=== PATIENT | female | born 1955 | race Caucasian/White ===

== ENCOUNTER 2022-09-25 11:40 | Day surgery (SDC) | payer OTHER, SELFPAY ==
[2022-09-16 12:43] VITALS: BMI 26.1
[2022-09-25] VITALS (12 sets, daily range): BP systolic 120–146; BP diastolic 61–76; PULSE 68–82; RESP 12–18; TEMP 36.2–36.9; O2SAT 96–100; BMI 25.8
--- NOTE | 2022-09-25 07:19 | DI.RAD.S_ITS ---
PROCEDURE: XR HIP W PEL IF DONE RT 2V INDICATIONS: YASMEEN TECHNIQUE: AP pelvis with lateral view(s) of the right hip(s). COMPARISON: [facility], CR, XR PELVIS WITH LATERAL HIP RIGHT, 09/18/2022, 11:46. [facility], CR, XR HIP W PEL IF DONE RT 2V, 09/25/2022, 16:34. FINDINGS: Right hip arthroplasty is present. Hardware is intact without evidence of hardware fracture. There is good anatomic alignment. Arthritic changes are noted within the left hip. IMPRESSION: Right hip arthroplasty. Dictated by: Rosangela Buckley M.D. on 09/25/2022 at 19:12 Approved by: Rosangela Buckley M.D. on 09/25/2022 at 19:13
[2022-09-25] MEDS: CELECOXIB 200 MG CAPSULE PO (12:16)
[2022-09-25] MEDS: ACETAMINOPHEN 325 MG TABLET 975 MG PO (12:16)
[2022-09-25] MEDS: PREGABALIN 75 MG CAPSULE PO (12:17)
[2022-09-25] MEDS: LACTATED RINGERS 1,000 ML 42 ML IV (12:44)
[2022-09-25] MEDS: VANCOMYCIN 1,000 MG/200 ML PIGGYBACK 200 MG IV (13:59)
--- NOTE | 2022-09-25 14:51 | PM.PREOP ---
Pre-operative Note Interval Note History & Physical reviewed/Exam performed by Physician: Yes Changes to H&P: No
--- NOTE | 2022-09-25 14:52 | P.OP_ITS ---
Operative Date/Time/Diagnoses Date of procedure: 09/25/22 Time of procedure: 15:20 Pre-op diagnosis: Severe right hip OA Post-op diagnosis: same Procedure & Clinicians Procedure: Right total hip arthroplasty anterior approach Same procedure as scheduled: Yes Indications: The patient has had progressively worsening right hip pain with radiographic changes consistent with arthritis. Non-operative management has failed and the patient has requested total hip replacement. The risks, benefits and alternatives to surgery were discussed with the patient prior to proceeding. Risks discussed included, but were not limited to, failure to relieve pain, leg length discrepancy, dislocation, stiffness, infection, nerve damage, deep venous thrombosis, pulmonary embolism, stroke, coma, heart attack, permanent paralysis and , as well as the potential need for eventual revision of the prosthetic. Surgeon: Keiko Christianson Floriculture Teacher: Irma See Anesthesia Type: General and Spinal Operative Notes Findings: Severe right hip OA, adequate stability, adequate bone Closure Type: primary Specimen(s): none sent Prosthetic devices, grafts, tissues, transplants, or devices: Christianson and nephew R3 size 52, neutral poly liner,one 6.5 mm screw, size 0 collared polar stem, size 36 by -3 Oxinium Estimated Blood Loss (mL): 250 Blood products transfused: none Procedure in detail: The patient was brought to the operating room. Patient was carefully positioned in the supine position. Time-out was performed and antibiotics were given. Anesthesia was induced. She was positioned in the on the table in order to allow hyperextension of the hip. The right lower extremity was prepped and draped in a standard sterile fashion. An anterior right hip incision was made 1 fingerbreadth lateral to the anterior superior iliac spine and extended distally towards the greater trochanter. Dissection was carried out through skin and subcutaneous tissues. Superficial hemostasis was achieved. The fascia over the tensor fascia lorena was defined and incised with a knife. Two Allis clamps were used to grasp the fascia. Tensor fascia lorena was retracted laterally. A gelpi retractor was placed. Dissection was carried out down along the neck. The circumflex vessels were carefully identified and cauterized with the Aqua Mantis. A PA was used throughout the procedure and was essential for intraoperative positioning, retraction and assisting with hemostasis. There was good visualization of the femoral neck. A Cobra was placed superior to the neck and the gluteus fibers were carefully stripped from that superior aspect of the capsule. A 2nd retractor was placed along the inferior aspect of the neck. The rectus insertion along the capsule was partially released. A 3rd retractor that was then gently placed over the rim of the acetabulum under the rectus. Capsule was carefully incised and released from the intertrochanteric line circumferentially superior to the mid sagittal line and inferiorly to the mid sagittal line until the lesser trochanter was palpable. A tag stitch was placed both in the superior and inferior limb of the capsular insertion. Along the acetabulum capsule was also released up to the mid sagittal 12:00 position. A portion of the labrum was resected. A saw was used to perform an osteotomy at the level of the intertrochanteric line and the junction of the superior femoral neck leaving approximately 1 finger breath of residual inferior neck above the lesser trochanter. A 2nd cut was made along the femoral neck at the base of the head and a napkin ring of neck was removed. Corkscrew was placed in the femoral head and the head was removed without difficulty. Retractors were then repositioned around the acetabulum. Residual labrum was resected and additional osteophytes were removed. A reamer that was 4 mm below the templated size was placed by hand in the acetabulum and it was reamed to centralize the acetabulum. It was then reamed up to 2 under the templated size and fluoroscopy was brought in to confirm the position of the reaming and depth of reaming. I reamed 1 under the anticipated size. A trial cup was placed and noted that it was appropriately sized and fluoroscopy confirmed position and depth. The component was open and inserted without difficulty fluoroscopic imaging was used to confirm that the cup had been adequately seated and was well positioned. It was further stabilized with a single screw. Neutral poly liner was placed. The cup was tested and noted to be stable. Attention was then directed to the femur. The femur was gently hyperextended additional capsular release was performed as needed in order to allow adequate visualization of the proximal femur with elevation of the femur. Patient was placed in a hyperextended slightly adducted position with maximum external rotation. Box osteotome was used to check for any residual neck as well as sclerotic bone along the trochanter. [place] pepper was placed in the femur. Additional broaching was performed. Canal finder was used to determine the alignment of the canal and position. Size 0 broach was placed. The canal was then appropriately broached up to the templated size as long as there was adequate stability of the broach and serial advancement of the broach without excessive impingement. Specific attention was directed at avoiding varus attempting to direct the distal aspect of the broach more anteriorly and avoiding excessive anteversion. Trial reduction showed acceptable range of motion, good stability, no posterior impingement, bahai of leg length and appropriate lateral shuck. I also hyperflexed the hip and checked that there was no impingement anteriorly and there was good stability with flexion, adduction and internal rotation. The stem was placed without difficulty. Repeat trial reduction and x-ray showed acceptable overall position, length, and no evidence of the femoral fracture. Final head was placed. Wound was meticulously irrigated with normal saline. The hip was reduced and additional Exparel and Marcaine were injected. The capsule was closed with interrupted nonabsorbable sutures. The fascia of the tensor was closed with interrupted and running Vicryl. No drain was placed. Any tensor fascia lorena muscle that appeared to be contused or injured which was a minimal amount was carefully resected. Capsule around the tensor was injected with Exparel and Marcaine. The skin was closed with barbed stitches for the subcutaneous tissue and skin. We also used surgical glue. The wound was dressed sterilely. Brief Betadine soak was also used and was meticulously irrigated with normal saline. Patient was transferred to recovery room in satisfactory condition. Complications: none Post-operative Condition: stable Disposition: Acute Care Plan for aftercare: The patient will be maintained on a standard total hip replacement protocol with weight bearing as tolerated and anterior hip precautions. The patient will receive Aspirin and sequential compression devices for DVT prophylaxis. The pa tient will be discharged home when safe for the home environment.
[2022-09-25] MEDS: CEFAZOLIN 2 GM/100 ML PREMIX 100 ML IV ×2 (15:10→22:56)
--- NOTE | 2022-09-25 16:13 | SUR.OPER ---
Supine on padded [place] table with bilateral legs secured in padded positioning boots and suspended in positioning spars, operative leg in traction per surgeon. Head on one pillow. Arm on non-operative side secured on padded armboard <90 degrees abduction. Arm on operative side padded and resting across chest then secured with tape over sheet. Padded perineal post in place per surgeon.
[2022-09-25] MEDS: BUPIVACAINE LIPOSOME 266 MG/20 ML VIAL INJ (16:21)
[2022-09-25] MEDS: BUPIVACAINE 0.25% (PF) 60 ML, EPINEPHrine 0.3 MG INJ (16:23)
--- NOTE | 2022-09-25 17:22 | DI.RAD.S_ITS ---
PROCEDURE: XR HIP W PEL IF DONE RT 2V INDICATIONS: RIGHT TOTAL HIP REPLACEMENT TECHNIQUE: AP pelvis with lateral view(s) of the right hip(s). COMPARISON: [facility] CYRUS Barreto, XR PELVIS WITH LATERAL HIP RIGHT, 09/18/2022, 11:46. FINDINGS: Intraoperative images demonstrate right hip arthroplasty. Hardware is intact with good anatomic alignment. IMPRESSION: Intraoperative right hip arthroplasty. Dictated by: Rosangela Buckley M.D. on 09/25/2022 at 17:36 Approved by: Rosangela Buckley M.D. on 09/25/2022 at 17:37
--- NOTE | 2022-09-25 18:26 | SUR.PHASEI ---
to floor room 217 with belongings. Denies pain, tolerating PO fluids. report called.
[2022-09-25] MEDS: LACTATED RINGERS 1,000 ML 100 ML IV (19:32)
[2022-09-25] MEDS: ACETAMINOPHEN 325 MG TABLET 650 MG PO (19:35)
[2022-09-25] MEDS: IBUPROFEN 400 MG TABLET PO ×2 (19:35→21:49)
[2022-09-25] MEDS: ASPIRIN EC 81 MG TABLET PO (20:41)
[2022-09-25] MEDS: OXYCODONE IR 5 MG TABLET PO (21:49)
[2022-09-25] MEDS: OXYCODONE IR 10 MG TABLET PO (22:56)
[2022-09-26 01:06] VITALS: BP 130/73; PULSE 83; RESP 18; TEMP 36.4; O2SAT 97
[2022-09-26] MEDS: IBUPROFEN 400 MG TABLET PO ×6 (01:56→23:59)
[2022-09-26] MEDS: OXYCODONE IR 5 MG TABLET PO ×4 (01:56→14:27)
[2022-09-26 05:31] LABS: Hematocrit 36.7 % (36-46); Hemoglobin 12.5 g/dL (12.0-16.0)
[2022-09-26] MEDS: ACETAMINOPHEN 325 MG TABLET 650 MG PO ×3 (06:47→17:48)
[2022-09-26] MEDS: CEFAZOLIN 2 GM/100 ML PREMIX 100 ML IV (06:55)
[2022-09-26 08:00] VITALS: BP 115/59; PULSE 79; RESP 18; TEMP 36.9; O2SAT 99
--- NOTE | 2022-09-26 08:08 | P.DS_ITS ---
History of Present Illness History of Present Illness Date Patient Seen: 09/26/22 Time Patient Seen: 08:08 Chief complaint: Right Total Hip Arthroplasty/Anterior 09/25 Narrative: Operative Date/Time/Diagnoses Date of procedure: 09/25/22 Time of procedure: 15:20 Pre-op diagnosis: Severe right hip OA Post-op diagnosis: same Procedure & Clinicians Procedure: Right total hip arthroplasty anterior approach Same procedure as scheduled: Yes Indications: The patient has had progressively worsening right hip pain with radiographic changes consistent with arthritis. Non-operative management has failed and the patient has requested total hip replacement. The risks, benefits and alternatives to surgery were discussed with the patient prior to proceeding. Risks discussed included, but were not limited to, failure to relieve pain, leg length discrepancy, dislocation, stiffness, infection, nerve damage, deep venous thrombosis, pulmonary embolism, stroke, coma, heart attack, permanent paralysis and , as well as the potential need for eventual revision of the prosthetic. Surgeon: Keiko Christianson Forestry Biology Specialist: Irma See Anesthesia Type: General and Spinal Operative Notes Findings: Severe right hip OA, adequate stability, adequate bone Closure Type: primary Specimen(s): none sent Prosthetic devices, grafts, tissues, transplants, or devices: Christianson and nephew R3 size 52, neutral poly liner,one 6.5 mm screw, size 0 collared polar stem, size 36 by -3 Oxinium Estimated Blood Loss (mL): 250 Blood products transfused: none Discharge Providers Provider Discharge Date: 09/26/22 Primary care physician: Gurvinder Lauren MD Consults: 09/25/22 07:19 Consult to Anesthesiology Routine Comment: Consulting Provider: Anesthesiologist Reason for consultation: Regional block for post operative pain control 09/25/22 18:44 Consult to Discharge Planning Routine Comment: Consult to Occupational Therapy Evaluate & Treat Comment: Physician Instructions: Evaluate and treat Consult to Physical Therapy Evaluate & Treat Comment: Physician Instructions: post op YASMEEN protocol Discharge provider: Irma See PA-C Summary Hospital Course Discharge Diagnosis: Right hip osteoarthritis, s/p right total hip arthroplasty Hospital Course: Ms Smith's hospital course was unremarkable. On the morning of POD# 1, she w as feeling well and wanted to go home. She was eating and voiding without difficulty and her pain was well-controlled with oral medication. She had not yet been evaluated by PT. Exam Vital Signs (past 8 hours): - 09/26/22 01:06 Temperature 97.6 F Pulse Rate 83 Respiratory Rate 18 Blood Pressure 130/73 Pulse Oximetry 97 Oxygen Flow Rate 0 Oxygen Delivery Method Room Air Oxygen Flow Rate 0 Narrative Exam Narrative: 5/5 strength in hip flexors, quadriceps, hamstrings, DF, PF, EHL on right. Sensation to light touch intact throughout RLE. Calf soft, compressible, nontender and without palpable cords or masses. Aquacel dressing CDI. Objective Labs 09/26/22 05:09 Labs: Laboratory Results - last 24 hr 09/26/22 05:09 Hgb 12.5 Hct 36.7 PFSH Medical History (Updated 09/16/22 @ 13:24 by Elizabeth Joel, STEFFANY) Arthritis Elevated blood pressure reading in office with diagnosis of hypertension Elevated cholesterol History of COVID-19 (08/11/22) Osteoarthritis Pneumonia Psoriasis Surgical History (Updated 09/16/22 @ 13:10 by Elizabeth Joel RN) History of bilateral cataract extraction Hx of cone biopsy of cervix Social History household members: spouse Smoking Status: Former smoker alcohol intake: current Discharge Assessment & Plan Assessment and Plan Assessment: Right hip osteoarthritis, s/p right total hip arthroplasty Plan of Treatment: Discharge home. ASA BID x 6 weeks for VTE prophylaxis. Multimodal pain control - pt has rxs at home. Outpt PT, f/u in office in 2 weeks as scheduled. Discharge Plan Discharge Plan Patient Disposition: Home Discharge orders & Medications Discharge Orders: Discharge (Order); Ordered 09/26/22 Ordered By: Irma See Prescriptions: Continued meloxicam 15 mg Tablet 7.5 mg PO DAILY acetaminophen 500 mg Tablet 500 mg PO Q6H PRN (Reason: Pain) Follow up/Referrals: Gurvinder Lauren MD [Primary Care Provider] - Keiko Christianson MD [Physician] - As previously scheduled (Follow up with Irma See PA-C, on 10/10/2022 @ 10:30 am at [facility] in [place].) Diet/Activity/Treatments Diet: Diet as Tolerated Activity: Weightbearing as tolerated to right leg. Anterior hip precautions. Cold/Heat Therapy: Ice to hip as needed for pain. Skin/Wound/Dressing Care Report to your healthcare provider any signs of infection, such as:: chills, fever, night sweats, unusual drainage and unusual redness Dressing: May shower. Leave Aquacel dressing in place until follow up in office. No bathing or otherwise soaking incision. Call the office if the dres sing becomes saturated inside. Visit Report/Discharge Packet Instructions: DI for Hip Replacement Stand Alone Forms: Patient Portal/API, Surgery Discharge Discharge Data Primary Care Provider: Gurvinder Lauren Attending Provider: Keiko Christianson
[2022-09-26] MEDS: ASPIRIN EC 81 MG TABLET PO ×2 (08:27→21:05)
[2022-09-26] MEDS: DOCUSATE 100 MG CAPSULE PO ×2 (08:27→21:05)
[2022-09-26] MEDS: MELOXICAM 7.5 MG TABLET PO (08:27)
--- NOTE | 2022-09-26 09:38 | CM.DANOTE ---
Addendum entered by KALEB Etienne 09/26/22 12:20: ADD: Per PT/OT, pt was able to participate but was limited in her mobility and still needs to do stairs and anticipate pt may not be safe until tomorrow 09/27. Will need to assess for stairs before determining HH vs outpt. SW to continue to follow for afternoon session. BF Original Note: Patient is a 67 yo female who was admitted on 09/25/22 for RTHA. Pt has [facility] for insurance and her PCP is Dr. Gurvinder Lauren. EMR was reviewed. Per Ortho, pt tolerated procedure well and to work with PT/OT today. PT/OT ordered and pending. SW met bedside with pt and explained role and pt confirms she lives at home with spouse in [place] and no other local family and pt is active and independent at baseline with ADLs and does not use DME and drives. Pt has upcoming trips planned and is hopeful for full recovery by that time. Pt denies any hx of HH or SNF and states she has outpt PT already set up in a week but would be open to HH if needed. Pt states she will need to be able to manage 8 stairs but then everything would be on one level or 2 stairs but she would have to use this multiple times a day for the bathroom and aware that the [facility] has loaner DME program and hopeful not to have to use a BSC. Pt states spouse is self employed and can take off as much time as needed to assist and will provide transport. Plan: SW to follow for PT/OT eval and recommendations to confirm safe d/c home with spouse assist and outpt PT vs HH. KALEB Etienne Discharge Planning/Care Management Advanced directive, confirm from FAMILY Start: 09/25/22 21:10 Freq: Q24H Status: Active Protocol: Document 09/25/22 21:10 MS (Rec: 09/25/22 21:10 MS [id number]) Advance Directive, confirm on record Time 21:10 Person contacted Pt Copy received No CM Discharge Assessment Start: 09/26/22 09:34 Freq: Status: Active Protocol: Document 09/26/22 09:34 BF (Rec: 09/26/22 09:37 BF [id number]) Discharge Planning Assessment Assigned Malt House Operator KALEB Lake DPOA/Assigned Designee Name informally spouse Contact Information [phone] Advance Directives? Yes Advance Directives on File No History Provided By Patient,Medical Record Has Patient been admitted in last 30 No days? Prior Living Arrangements House Household Members spouse Type of transporation used prior to Drives own vehicle admit Independent with ADL's Yes Is patient alert and oriented? Yes Caregiver for Another No Comment Aware of [facility] DME program Patient/Family Preference Home with Home Health,OP PT Therapy Barriers to Discharge No Discharge Plan Home Community Services Physical Therapy Transportation Arrangement Spouse plans to provide transport at d/c Additional Comment Pending PT/OT to determine outpt vs HH Whiteboard Updated in Patient Room with Yes name and ext. # of Malt House Operator Review Status In Process Please Provide Date Initial DC 09/26/22 Assessment Was Performed Next Review Type Continued Stay Review Pre-Anesthesia Assessment Start: 09/16/22 12:43 Freq: Status: Active Protocol: Document 09/16/22 12:43 CAB (Rec: 09/16/22 13:46 CAB [id number]) Pre-Anesthesia Assessment Patient Information Reviewed Via Phone Assessment Assessment Completed With Patient Diagnostic Results BMP/CMP,CBC,EKG,Urinalysis Comment Outside labs/EKG scanned Primary Care Provider Gurvinder Lauren Seen Specialist in Last 12 Months Yes Specialist Seen Orthopedist Primary Language Latvian E Commerce Architect Required No Height 172.72 cm Weight 78.018 kg Body Mass Index (BMI) 26.1 Hearing Ability Normal Visual Assist Magnifying Glass Barriers to Learning None Other Aids Yes: mouth guard Hx Anesthesia Reactions No Hx Family Anesthesia Reaction No Hx Malignant Hyperthermia No Hx Blood Transfusions No Anesthesia Review Requested No Ground Transportation Operator No alcohol intake current alcohol intake frequency 0-2 drinks per day Smoking Status Former smoker how long ago did patient quit smoking Quit 25 years ago Substance Use Type does not use Pain Present Pain Reported Musculoskeletal Symptoms Abnormal Gait,Difficulty Walking,Joint Pain History of Falling (Recent or History of No ) Patient is completely paralyzed or No completely immobile Mental Status Oriented to own ability Comment Occasional walking stick with uneven surfaces Is patient on oxygen? No Does patient have SINGH/SOB No Hx Sleep Apnea No Currently Taking a Beta Megha No Can You Climb a Flight of Stairs Without Yes SOB Hx Chest Pain No Hx SOB No Hx Syncope or Dizziness No Anti-Coagulant Therapy No Has a Terrazzo Tile Setter No Cardiac Testing No Hx Pacemaker/ICD No Pacemaker Rep Required? No Cardiac Clearance Received Not Applicable Diet Type At Home Regular Dysphagia No Gastrointestinal Symptoms None Chronic UTI No Urinary Catheter Present No Hx Urinary Self Catheterization No Diabetes No Patient No Lactating No Hx Drug Resistant Organism No Presence of External or Internal Medical No Devices Received a COVID vaccine? Yes Received all doses? Yes Marital Status Lives With spouse Current Living Arrangements House Number of Floors (Floors) 3 or More Floors Support System Spouse Does the Patient Have Assistance After Yes Surgery Patient Discharge Plan Description Return Home Comment Pt advised possible overnight length of stay per surgeon Feels Safe in Current Environment Yes Been Physically Hurt or Threatened By a No Person in Current Environment Do you have thoughts of harming yourself None or others? Are you currently considering suicide? No Do you have a plan to hurt yourself or No Plan others? Do You Have Any Spiritual Beliefs That No May Affect Your HC Choices? Do You Have Any Cultural Practices That No May Affect Your HC Choices? Who Can We Speak to About Patient's Care Family, friends Identifying Code for Release of Patient Declines to issue Information Health Care Proxy/Next of Kin Archie () Health Care Proxy Emergency Contact Name Archie () Emergency Contact Advance Directives? Yes Advance Directives on File No Requested Patient Bring Advanced Yes Directives DOS Power of Cutting And Creasing Press Operator Yes Power of Cutting And Creasing Press Operator Name Archie () Power of Cutting And Creasing Press Operator PAC Instructions Do not shave/clip surgical site,Durable medical equipment ,Medications to take/avoid, Nasal antibiotic,No ETOH/ petroleum product on skin DOS, NPO,Pre-surgical wash,Sensory aids,Sturdy shoes/comfortable clothes,Do not bring valuables and remove jewelry
--- NOTE | 2022-09-26 12:03 | OT.IP.EVAL ---
Current Diagnoses Bilateral primary osteoarthritis of hip (09/25/22) Surgery Performed Operation Date: 09/25/22 13:45 Actual Procedures p Total Hip Arthroplasty/Anterior Approach(Right) - Keiko Christianson MD Past Medical History (Last Updated 09/16/22 @ 13:24 by Elizabeth Joel, RN) Arthritis Elevated blood pressure reading in office with diagnosis of hypertension Elevated cholesterol History of COVID-19 (08/11/22) Osteoarthritis Pneumonia Psoriasis Surgical History (Last Updated 09/16/22 @ 13:10 by Elizabeth Joel RN) History of bilateral cataract extraction Hx of cone biopsy of cervix Occupational Therapy Inpatient Evaluation/Re-Eval M1 PT/OT-IP Prior Functional Status Start: 09/26/22 12:16 Freq: NEEDED Status: Active Protocol: Document 09/26/22 11:25 [facility] (Rec: 09/26/22 12:45 [facility] [id number]) Medical Review Prior Functional Status Communication Independent Mobility and Gait Use of trekking poles on uneven ground, otherwise no device used, Activities of Daily Living and IADL's Pt able to do her ADL's. Social History Household Members spouse Living Arrangements House Number of Stairs To Enter/Railing? Pt has multiple steps in her house, please refer to PT eval for more details. Home Environment Standard Height Toilet,Walk in Shower,Tub/Shower Home Equipment Front Wheel Walker,Straight Cane,Tub Transfer Bench,Long Handled Shoe Horn,Ice Cream Man,Grab Bars Near Toilet Additional Social History Comment Pt has a toilet safety frame. M2 OT-IP Current Condition Start: 09/26/22 12:16 Freq: Status: Active Protocol: Document 09/26/22 11:25 [facility] (Rec: 09/26/22 12:45 [facility] [id number]) Occupational Therapy Current Condition Current Condition Evaluation Date 09/26/22 Treatment Diagnosis S/p R YASMEEN anterior approach Diagnosis Onset Date 09/25/22 Post Operative Precautions Anterior Hip Precautions No Hip Extension,No Hip External Rotation Weight Bearing Status Weight Bearing Status Weight Bear as Tolerated M3 OT- IP Subjective and Pain Start: 09/26/22 12:16 Freq: Status: Active Protocol: Document 09/26/22 11:25 [facility] (Rec: 09/26/22 12:45 [facility] [id number]) OT- Subjective Occupational Therapy Visit Type Type Initial Evaluation Visit Start Time 11:25 Visit Stop Time 12:03 Total Visit Minutes 28 Occupational Therapy Visit Comments Patient Comments Pt agreed to get up to do oral are needs. Patient/Caregiver Goals To go home. OT Pain Assessment Pain When Pain Assessed At Rest Pain Present Pain Present Pain Reported Location Right Hip Intensity 2 Scale Used Numeric (0 - 10) M4 OT- IP ADL's Start: 09/26/22 12:16 Freq: Status: Active Protocol: Document 09/26/22 11:25 [facility] (Rec: 09/26/22 12:45 [facility] [id number]) OT [id number] General Evaluation Self-Feeding Ability Independent OT ADL-Grooming General Evaluation Grooming Ability Independent Comments OT Grooming Comments Pt able to do while standing at the sink with FWW and use of counter to hold to for balance. OT ADL-Oral Care General Eval Oral Care Ability Independent Comments Oral Care Comments Able to do while standing at the sink with FWW. OT ADL-Dressing General Eval Lower Body Dressing Ability Minimal Assistance Comments OT Dressing Comments At this time pt not able to comfortably lean over to to do her socks and pt shown use of sock aid. OT ADL-Toileting Comments OT Toileting Comments Pt just used the toilet with PT prior. Spoke of wearing pads at night and tappering drinking liquids at night. OT ADL-Bathing Comments OT Bathing Comments Pt states has a tub bench from a friend. Suggested would be easier to use the walk in shower with the tub bench and have the HHsp. Currently the HHSP is in the tub/shower bathroom. M5 OT- IP IADL's Start: 09/26/22 12:16 Freq: Status: Active Protocol: Document 09/26/22 11:25 [facility] (Rec: 09/26/22 12:45 [facility] [id number]) OT-Instrumental Activities of Daily Living Deficits IADL Deficits Identified Deficits Home Safety Awareness Awareness of Need for Assistance at Home Good Awareness Home Safety Comments Pt is a bit tearful and will benefit from assist at home. M6 OT- IP Functional Cognition Start: 09/26/22 12:16 Freq: Status: Active Protocol: Document 09/26/22 11:25 [facility] (Rec: 09/26/22 12:45 [facility] [id number]) Cognitive Factors Limiting Selfcare Function Cognitive Ability Level of Alertness Alert Patient Orientation Name,Place,Situation Attention Span Ability Capable of Focused Attention, Capable of Sustained Attention Ability to Follow Commands Able to Follow One Step Commands Cognitive Comments Cognitive Assessment Comments Pt able to follow her hip precautions during mobility and ADl needs. Pt is a bit tearful and needing reassurance that she is doing well so far in therapy. Pt needing reminders that is is okay to put weight on her RLE as pt tend to just lift in up when turning with the FWW. OT- Vision and Hearing OT- Hearing Assessment OT- Hearing Assessment WFL M7 OT- IP Mobility and Balance Start: 09/26/22 12:16 Freq: Status: Active Protocol: Document 09/26/22 11:25 [facility] (Rec: 09/26/22 12:45 [facility] [id number]) OT-Transfer Assessment Sit to and From Stand Sit to and from Stand Contact Guard Assistance Transfers Transfer Ability Standby Assistance,Contact Guard Assistance Technique Transfer Destination Chair Comments Mobility Comments Occasional vc to follow hip precaution when backing up to lead with the LLE. Pt having heavy use of her arms on the FWW. OT- Balance Assessment Sitting Balance and Reactions Static Sitting Balance Ability Normal Dynamic Sitting Balance Ability Good Standing Balance and Reactions Static Standing Balance Ability Fair Dynamic Standing Balance Ability Fair M9 OT- IP Assessment and Plan Start: 09/26/22 12:16 Freq: Status: Active Protocol: Document 09/26/22 11:25 [facility] (Rec: 09/26/22 12:45 [facility] [id number]) OT Summary Assessment and Plan Potential Rehabilitation Potential Good Analytic Complexity at Evaluation Low Summary OT Impairments Pain,Strength,Balance, Functional Mobility,Dressing, Toileting,Bathing,Toilet Transfers,Shower Transfers, Activity Tolerance Progress Towards Goals Progressing Toward Goals,Slow Progress due to Pain,Slow Progress due to Activity Tolerance Assessment Summary Pt low complexity and main barriers are steps, cues for hip precautions, and decreased activity tolerance. Pt has a supportive to be able to help her and will benefit from caregiver training prior to going home. Pt to go home when medically stable with to assist. pending progress, pt may benefit from possible home health initially versus outpt PT. Goals Dressing Goal Independent Toileting Goal Independent Bathing Goal Independent Toilet Transfer Goal Independent Shower Transfer Goal Independent Days to Meet Goals 7 Frequency of Treatment Frequency Of Treatment Once a Day Treatment Plan OT Treatment Plan ADL Training,Functional Mobility,Patient/Family Education,Discharge Planning Discharge Recommendations OT Discharge Recommendations Home with Assistance, Outpatient PT Other Discharge Recommendations Pending progress and stair management needs, possibly may need home health initially. Transportation Needs at Discharge Private Vehicle
--- NOTE | 2022-09-26 12:44 | PT.IIE ---
Current Diagnoses Bilateral primary osteoarthritis of hip (09/25/22) Surgery Performed Operation Date: 09/25/22 13:45 Actual Procedures p Total Hip Arthroplasty/Anterior Approach(Right) - Keiko Christianson MD Surgical History (Last Updated 09/16/22 @ 13:10 by Elizabeth Joel, RN) History of bilateral cataract extraction Hx of cone biopsy of cervix Medical History (Last Updated 09/16/22 @ 13:24 by Elizabeth Joel, RN) Arthritis Elevated blood pressure reading in office with diagnosis of hypertension Elevated cholesterol History of COVID-19 (08/11/22) Osteoarthritis Pneumonia Psoriasis Physical Therapy Inpatient Evaluation/Re-Eval M1 PT/OT-IP Prior Functional Status Start: 09/26/22 08:48 Freq: NEEDED Status: Active Protocol: Document 09/26/22 12:18 [facility] (Rec: 09/26/22 12:44 [facility] [id number]) Medical Review Prior Functional Status Medical History Reviewed Yes Diet/Fluid Consistency Regular Communication Indep Mobility and Gait Indep; use of B trekking poles on uneven ground outside. Activities of Daily Living and IADL's Indep Prior Functional Level (Other details) Able to drive Social History Household Members spouse Living Arrangements House Number of Floors (Floors) 3 or More Floors Number of Stairs To Enter/Railing? Multiple levels throughout the house. No stairs to enter to kitchen level. 4 stairs to a landing plus another 4 stairs up to main bedroom and bathroom. 2 stairs down to second bedroom, with another 2 stairs to the second bathroom . All stairs without rails. There is a shelf on the upper set of 4 stairs to the main bedroom. Home Environment Standard Height Toilet Home Equipment Front Wheel Walker,Straight Cane,Long Handled Shoe Horn, Senior Trial Attorney Additional Social History Comment Has 2 canes, and has arm rests on the toilet. M2 PT-IP Current Condition Start: 09/26/22 08:48 Freq: NEEDED Status: Active Protocol: Document 09/26/22 12:18 [facility] (Rec: 09/26/22 12:44 [facility] [id number]) Physical Therapy Current Condition Current Condition Evaluation Date 09/26/22 Treatment Diagnosis S/p R YASMEEN Onset Date 09/25/22 M3 PT-IP Subjective Start: 09/26/22 08:48 Freq: NEEDED Status: Active Protocol: Document 09/26/22 12:18 [facility] (Rec: 09/26/22 12:44 [facility] [id number]) Subjective Physical Therapy Visit Type Type Initial Evaluation Visit Start Time 10:12 Visit Stop Time 11:12 Total Visit Minutes 60 Physical Therapy Visit Comments Patient Comments Patient alert in bed, agreeable to work with PT. Patient stated that last night she had an accident with the pure wick and the nursing staff changed her bed linens while she was in the bed, having her roll on to each side. When she rolled on to her R side she had pain in the R outer thigh, buttock, and foot. Patient stated she is worried that something happened to her hip joint. Therapy Pain Assessment Pain When Pain Assessed At Rest Pain Present Pain Present Pain Reported Location Right Hip Intensity 1 Scale Used Numeric (0 - 10) Pain Management Techniques Apply Cold,Re-positioning, Timing of Activity with Medications M4 PT-IP Mobility and Gait Start: 09/26/22 08:48 Freq: NEEDED Status: Active Protocol: Document 09/26/22 12:18 [facility] (Rec: 09/26/22 12:44 [facility] [id number]) PT-Bed Mobility Assessment Supine to Sit Supine to Sit Minimal Assistance,Bedrails Scooting Scooting to Edge of Bed Standby Assistance PT-Transfer Assessment Sit to and From Stand Sit to and from Stand Minimal Assistance,Use of Upper Extremities Equipment Transfer Assistive Device Gait Belt,Front Wheeled Walker Transfers Transfer Destination Chair,Toilet Transfer Technique Ambulation Transfer Ability Level of Assist Minimal Assistance,Use of Upper Extremities Comments Mobility Comments Instructed patient in set up positioning and hand placement for sit to/from stand to reduce pain and excessive ROM of R hip. Patient required min A to push to stand from toilet despite using grab bar. Gait Assessment Gait Gait Assistance Required: Contact Guard Assist Distance (Feet) 12 Assistive Devices Assistive Device Gait Belt,Front Wheeled Walker Gait Deviations General Gait Pattern Antalgic,Decreased Feet Clearance,Step-to Gait Factors Limiting Gait Function Factors Limiting Gait Function Decreased Strength,Pain Comments Gait Comments Ambulated with short step length, R leg leading, with decreased R hip and knee flexion contributing to decreased R foot clearance. She had decreased stance time and WB into RLE. Patient cued for hip precautions during turning to reduce ER. PT-Balance Assessment Sitting Balance and Reactions Static Sitting Balance Ability Good Dynamic Sitting Balance Ability Good Standing Balance and Reactions Static Standing Balance Ability Good Dynamic Standing Balance Ability Fair Device Used FWW M5 PT-IP Objective Assessments Start: 09/26/22 08:48 Freq: NEEDED Status: Active Protocol: Document 09/26/22 12:18 [facility] (Rec: 09/26/22 12:44 [facility] [id number]) Orientation Orientation/Cognition Level of Alertness Alert Orientation Name,Age,Birthday,Month,Date, Year,Day of Week,Place, Situation Language Function Ability No Deficits Noted Safety Awareness Understands Safety Issues Memory Description No Deficits Noted Gross Range of Motion Upper Extremity ROM Assessment Within Functional Limits Lower Extremity ROM Assessment Right Impaired Impairments 2/2 hip precautions, pain Strength Upper Extremity Strength Assessment Within Functional Limits Lower Extremity Strength Assessment Right Impaired Comments Strength Comments R hip strength impaired 2/2 surgery. Coordination Assessment Gross Coordination Gross Coordination WNL Sensation Assessment Comments Sensation Comments Patient reported some numbness in the lateral R thigh. M6 PT-IP Treatment Start: 09/26/22 08:48 Freq: NEEDED Status: Active Protocol: Document 09/26/22 12:18 [facility] (Rec: 09/26/22 12:44 [facility] [id number]) Physical Therapy Treatment Exercises Exercises Ankle Pumps,Gluteal Sets,Quad Sets,Heel Slides Education Education Provided Precautions,Weight Bearing Status,Post-Op Packet,Safety Equipment Issued Equipment Type and Company Recommended she consider obtaining a second FWW so that she can move from one level to another in her home without having to take walker up and down stairs each time. Also recommended BSC if she sleeps in the second bedroom to avoid having to go up/down stairs at night. M7 PT-IP Assessment and Plan Start: 09/26/22 08:48 Freq: NEEDED Status: Active Protocol: Document 09/26/22 12:18 [facility] (Rec: 09/26/22 12:44 [facility] [id number]) PT Summary Assessment and Plan Potential Rehabilitation Potential Good Status of Condition at Evaluation Stable Summary Impairments Pain,ROM,Strength,Bed Mobility ,Transfers,Gait,Activity Tolerance Assessment Summary Patient is a 67 year old female POD #1 s/p R YASMEEN. She required min A for bed mobility to move LE's to EOB, min A for transfers due to decreased strength for pushing to stand, and was only able to ambulate very short distance with FWW due to pain and decreased strength in RLE with WB. She demonstrated good understanding of precautions. She required assistance with heel slides, otherwise able to perform HEP without problem. She will benefit from further skilled therapy to increase independence with functional mobility prior to d/c home. Goals Bed Mobility Goal Independent Transfer Goal Independent,Front Wheeled Walker Gait Goal Independent,Front Wheel Walker Gait Distance 100 Other Goals Patient will be able to ascend /descend up to 8 stairs without rail with LRAD and SBA . Patient will demonstrate good understanding of hip precautions without cues. Patient will be indep with YASMEEN HEP. Days to Meet Goals 3 Frequency of Treatment Frequency Of Treatment Twice a Day Treatment Plan Physical Therapy Treatment Plan Bed Mobility Training,Transfer Training,Gait Training, Therapeutic Exercise,Post Op Education,Discharge Planning, Hot or Cold Pack Precautions Anterior Hip Precautions No Hip Extension,No Hip External Rotation Weight Bearing Status Weight Bearing Status Weight Bear as Tolerated Allowed Weight Bearing Amount (enter % WBAT RLE or #) (%) Recommendations To Nursing Amount of Assist Needed 1 Person Assist Discharge Recommendations PT Discharge Recommendations Home with Assistance, Outpatient PT Transportation Needs at Discharge Private Vehicle
--- NOTE | 2022-09-26 17:26 | PT.IPTN ---
Current Diagnoses Bilateral primary osteoarthritis of hip (09/25/22) Surgery Performed Operation Date: 09/25/22 13:45 Actual Procedures p Total Hip Arthroplasty/Anterior Approach(Right) - Keiko Christianson MD Physical Therapy Treatment Note M2 PT-IP Current Condition Start: 09/26/22 08:48 Freq: NEEDED Status: Active Protocol: Document 09/26/22 12:18 [facility] (Rec: 09/26/22 12:44 [facility] [id number]) Physical Therapy Current Condition Current Condition Evaluation Date 09/26/22 Treatment Diagnosis S/p R YASMEEN Onset Date 09/25/22 M3 PT-IP Subjective Start: 09/26/22 08:48 Freq: NEEDED Status: Active Protocol: Document 09/26/22 17:11 [facility] (Rec: 09/26/22 17:25 [facility] [id number]) Subjective Physical Therapy Visit Type Type Treatment Note Visit Start Time 15:21 Visit Stop Time 16:06 Total Visit Minutes 45 Number of AMMUNITION OFFICER Visits 0 Physical Therapy Visit Comments Patient Comments Patient alert in bed, reported she had pain meds prior to treatment and not having any pain at rest though having difficulty performing heel slide in the bed. Patient agreeable to work with PT. She expressed concern about going home where she will have to be able to go up and down stairs throughout the day. Therapy Pain Assessment Pain When Pain Assessed At Rest Pain Present Pain Present Denied Pain M4 PT-IP Mobility and Gait Start: 09/26/22 08:48 Freq: NEEDED Status: Active Protocol: Document 09/26/22 17:11 [facility] (Rec: 09/26/22 17:25 [facility] [id number]) PT-Bed Mobility Assessment Supine to Sit Supine to Sit Standby Assistance,Head of Bed Elevated,Bedrails Scooting Scooting to Edge of Bed Standby Assistance PT-Transfer Assessment Sit to and From Stand Sit to and from Stand Contact Guard Assistance,Use of Upper Extremities Equipment Transfer Assistive Device Gait Belt,Front Wheeled Walker Transfers Transfer Destination Chair,Toilet Transfer Technique Ambulation Transfer Ability Level of Assist Contact Guard Assistance,Use of Upper Extremities Comments Mobility Comments Patient performed bed supine to sit with HOB slightly raised and use of leg material handler 1st shift to assist. She required extra time and had difficulty even with use of leg material handler 1st shift. She required min cues for placing operative leg forward to reduce pain during STS. Gait Assessment Gait Gait Assistance Required: Contact Guard Assist Distance (Feet) 60 Assistive Devices Assistive Device Gait Belt,Front Wheeled Walker Gait Deviations General Gait Pattern Antalgic,Decreased Stride Length,Decreased Feet Clearance,Step-to Gait Factors Limiting Gait Function Factors Limiting Gait Function Decreased Strength,Pain Comments Gait Comments Patient again had difficulty bearing weight through RLE, with c/o ankle instability and pain. She was able to lengthen her step length some with further ambulation still using step-to pattern due to decreased stance time on R. Stair Climbing Assessment Evaluation Level of Assist On Stairs Moderate Assistance Devices Stair Climbing Assistive Devices Straight Cane,Left Railing Technique/Endurance Stair Climbing Direction Ascend and Descend Stair Climbing Technique Step to Step Number of Steps Climbed 3 Stair Climbing Set # Repetitions (reps) 2 Comments Stair Climbing Comments Performed initially with B rails and CGA. Then attempted with SPC and single rail and required mod A including blocking of RLE while descending due to decreased WB tolerance through RLE. PT-Balance Assessment Sitting Balance and Reactions Static Sitting Balance Ability Good Dynamic Sitting Balance Ability Good Standing Balance and Reactions Static Standing Balance Ability Good Dynamic Standing Balance Ability Fair Device Used FWW M5 PT-IP Objective Assessments Start: 09/26/22 08:48 Freq: NEEDED Status: Active Protocol: Document 09/26/22 12:18 [facility] (Rec: 09/26/22 12:44 [facility] [id number]) Orientation Orientation/Cognition Level of Alertness Alert Orientation Name,Age,Birthday,Month,Date, Year,Day of Week,Place, Situation Language Function Ability No Deficits Noted Safety Awareness Understands Safety Issues Memory Description No Deficits Noted Gross Range of Motion Upper Extremity ROM Assessment Within Functional Limits Lower Extremity ROM Assessment Right Impaired Impairments 2/2 hip precautions, pain Strength Upper Extremity Strength Assessment Within Functional Limits Lower Extremity Strength Assessment Right Impaired Comments Strength Comments R hip strength impaired 2/2 surgery. Coordination Assessment Gross Coordination Gross Coordination WNL Sensation Assessment Comments Sensation Comments Patient reported some numbness in the lateral R thigh. M6 PT-IP Treatment Start: 09/26/22 08:48 Freq: NEEDED Status: Active Protocol: Document 09/26/22 17:11 [facility] (Rec: 09/26/22 17:25 [facility] [id number]) Physical Therapy Treatment Education Education Provided Precautions,Weight Bearing Status,Safety M7 PT-IP Assessment and Plan Start: 09/26/22 08:48 Freq: NEEDED Status: Active Protocol: Document 09/26/22 17:11 [facility] (Rec: 09/26/22 17:25 [facility] [id number]) PT Summary Assessment and Plan Summary Impairments Pain,ROM,Strength,Bed Mobility ,Transfers,Gait,Activity Tolerance Progress Towards Goals Slow Progress due to Activity Tolerance Assessment Summary Patient continues to be unsteady with walking due to pain and instability with WB through RLE. She was able to perform bed mobility with decreased assistance using leg material handler 1st shift, and required decreased assistance with transfers this visit. She was able to progress ambulation distance though still demonstrates limited WB tolerance through RLE and uses max UE support on FWW. She required mod A on stairs using single rail and cane, which will be her setup at home. She is not yet safe to d/c home as she will have to go up/down stairs daily. She will benefit from further PT to increase independence with mobility prior to d/c home. She may benefit from HHPT as it will likely be difficult for her to leave her home to attend OP PT initially. Goals Bed Mobility Goal Independent Transfer Goal Independent,Front Wheeled Walker Gait Goal Independent,Front Wheel Walker Gait Distance 100 Other Goals Patient will be able to ascend /descend up to 8 stairs with single rail with LRAD and SBA. Patient will demonstrate good understanding of hip precautions without cues. Patient will be indep with YASMEEN HEP. Days to Meet Goals 3 Frequency of Treatment Frequency Of Treatment Twice a Day Treatment Plan Physical Therapy Treatment Plan Bed Mobility Training,Transfer Training,Gait Training, Therapeutic Exercise,Post Op Education,Discharge Planning, Hot or Cold Pack Other Recommendations and Next Treatment Gait and stair training. Focus Caregiver training with at 10:30. Precautions Anterior Hip Precautions No Hip Extension,No Hip External Rotation Weight Bearing Status Weight Bearing Status Weight Bear as Tolerated Allowed Weight Bearing Amount (enter % WBAT RLE or #) (%) Recommendations To Nursing Amount of Assist Needed 1 Person Assist Discharge Recommendations PT Discharge Recommendations Home with Assistance,Home Health Other Discharge Recommendations HHPT vs OPPT depending on progress. Transportation Needs at Discharge Private Vehicle
[2022-09-26 20:00] VITALS: BP 129/56; PULSE 73; RESP 16; TEMP 36.7; O2SAT 97
[2022-09-27] MEDS: ACETAMINOPHEN 325 MG TABLET 650 MG PO ×2 (00:05→06:02)
[2022-09-27] MEDS: IBUPROFEN 400 MG TABLET PO ×2 (06:02→12:01)
[2022-09-27 08:00] VITALS: BP 134/50; PULSE 77; RESP 18; TEMP 36.4; O2SAT 96
[2022-09-27] MEDS: ASPIRIN EC 81 MG TABLET PO (08:55)
[2022-09-27] MEDS: DOCUSATE 100 MG CAPSULE PO (08:55)
--- NOTE | 2022-09-27 09:22 | PM.PNPO.1 ---
Subjective Subjective Date Patient Seen: 09/27/22 Time Patient Seen: 09:22 Interval history: Pt stayed yesterday due to weakness and slow progress w/ PT. Feeling much better today. Plans for to come in for caregiver training w/ PT this morning, then d/c home. Concerned about tight, warm feeling in thigh. Exam Vital Signs (past 8 hours): Oxygen Delivery Method Room Air Oxygen Flow Rate 0 Narrative Exam Narrative: 5/5 strength in hip flexors, quadriceps, hamstrings, DF, PF, EHL on right. Sensation to light touch intact throughout RLE. Calf soft, compressible, nontender and without palpable cords or masses. Thigh is without erythema or abnormal warmth. Aquacel dressing has scant bloody drainage. Objective Labs 09/26/22 05:09 [facility] Medical History (Updated 09/16/22 @ 13:24 by Elizabeth Joel RN) Arthritis Elevated blood pressure reading in office with diagnosis of hypertension Elevated cholesterol History of COVID-19 (08/11/22) Osteoarthritis Pneumonia Psoriasis Surgical History (Updated 09/27/22 @ 09:25 by Irma See PA-C) History of bilateral cataract extraction Hx of cone biopsy of cervix Social History household members: spouse Smoking Status: Former smoker alcohol intake: current Assessment & Plan Post-op Assessment and plan (1) S/P total hip arthroplasty: Assessment and Plan narrative: Discharge home today after PT. Please see d/c summary for details. Postoperative Procedures: Procedures Operation Date: 09/25/22 13:45 Actual Procedure Side Surgeon p Total Hip Arthroplasty/Anterior Approach Right Keiko Christianson MD Postoperative day: 2
[2022-09-27] MEDS: OXYCODONE IR 5 MG TABLET PO ×2 (09:39→12:50)
--- NOTE | 2022-09-27 10:23 | PT.IPTN ---
Current Diagnoses Bilateral primary osteoarthritis of hip (09/25/22) Presence of unspecified artificial hip joint (09/25/22) Surgery Performed Operation Date: 09/25/22 13:45 Actual Procedures p Total Hip Arthroplasty/Anterior Approach(Right) - Keiko Christianson MD Physical Therapy Treatment Note M2 PT-IP Current Condition Start: 09/26/22 08:48 Freq: NEEDED Status: Active Protocol: Document 09/26/22 12:18 ES (Rec: 09/26/22 12:44 ES [id number]) Physical Therapy Current Condition Current Condition Evaluation Date 09/26/22 Treatment Diagnosis S/p R YASMEEN Onset Date 09/25/22 M3 PT-IP Subjective Start: 09/26/22 08:48 Freq: NEEDED Status: Active Protocol: Document 09/27/22 10:23 AB (Rec: 09/27/22 12:49 AB [id number]) Subjective Physical Therapy Visit Type Type Treatment Note Visit Start Time 10:23 Visit Stop Time 11:35 Total Visit Minutes 72 Number of OIL ANALYST Visits 0 Physical Therapy Visit Comments Patient Comments agreeable to do PT Therapy Pain Assessment Pain When Pain Assessed During Mobility Location Right Hip Scale Used pain scale not stated Description Sharp,With Movement Pain Management Techniques Apply Cold,Distraction, Modification of Treatment,Re- positioning,Timing of Activity with Medications M4 PT-IP Mobility and Gait Start: 09/26/22 08:48 Freq: NEEDED Status: Active Protocol: Document 09/27/22 10:23 AB (Rec: 09/27/22 12:49 AB [id number]) PT-Bed Mobility Assessment Supine to Sit Supine to Sit Standby Assistance Sit to Supine Sit to Supine Standby Assistance PT-Transfer Assessment Sit to and From Stand Sit to and from Stand Contact Guard Assistance,1 Person Assistance,Use of Upper Extremities Equipment Transfer Assistive Device Gait Belt,Front Wheeled Walker Orthotic/Prosthetic Devices or Brace: No Transfers Transfer Destination Bed,Chair Transfer Technique ambulated Transfer Ability Level of Assist Contact Guard Assistance,1 Person Assistance,Use of Upper Extremities Comments Mobility Comments pt sitting on chair. reviewed anterior hip precautions with pt and pt able to recall 1/2. spouse just arrived for caregiver training. educated pt and spouse regarding anterior hip precautions. educated pt and spouse regarding anterior hip precautions. educated spouse on how to use safety belt and how to assist pt. PT demonstrated use of safety belt and how to assist pt with sit to stand and ambulation using FWW ~ 20 ft. also cued pt for R quads activation and increase NARGIS. pt sat back on chair. spouse was able to put safety belt on pt and assisted pt with ambulation in room using FWW ~ 20 ft. pt sat on EOB. completed bed mobility SBA and cues provided for techniques. reviewed stair climbing with pt. pt ambulated towards the stairs with spouse assisting using FWW ~ 150 ft. pt completed up/down steps using L rail ascending + SPC with PT assisting requiring mod A to and max cues for R quads activation. presented slight R knee buckling but with recovery with assist provided of mod. educated spouse on how to assist and cue pt for quads activation. pt completed up/down steps again with spouse assisting mod to max A and max cues. pt rested. pt stated that she has walk farther if she has to climb the steps with the rail but shorter if she gets in throught the stairs without rails and wants to see if she can do stair without rails with the spouse assisting. PT educated pt and spouse on how to do stair with use of SPC+ INSPECTING MACHINE ADJUSTER. Pt attempted to complete but unable to take a step up. stated that her RLE cannot hold up. pt agrees that the safest for now is going through the stairs with 1 rail . assissted pt back to her room. ambulated from w/c to chair using FWW CGA. positioned pt on the chair. call light and table placed within reach. Talked to pt regarding HHPT but pt stated that she will be better by time she has to go to her outpt PT appointment. educated pt on safety and is aware of her option for homehealth PT. Pt and spouse understood. Gait Assessment Gait Gait Assistance Required: Contact Guard Assist Distance (Feet) 150 Able to Maintain Weight Bearing Status Yes During Gait Assistive Devices Assistive Device Gait Belt,Front Wheeled Walker Orthotic/Prosthetic Devices or Brace: No Gait Deviations General Gait Pattern Decreased Feet Clearance, Narrow Based Gait Factors Limiting Gait Function Factors Limiting Gait Function Decreased Activity Tolerance, Decreased Strength,Difficulty Following Directions,Limited Range of Motion,Pain,Poor Balance,Poor Safety Awareness Stair Climbing Assessment Evaluation Level of Assist On Stairs Moderate Assistance,Maximal Assistance,1 Person Assistance Devices Stair Climbing Assistive Devices Straight Cane,Left Railing Technique/Endurance Stair Climbing Direction Ascend and Descend Stair Climbing Technique Step to Step Number of Steps Climbed 3 Stair Climbing Set # Repetitions (reps) 2 Comments Stair Climbing Comments pls refer to mobility section for details M5 PT-IP Objective Assessments Start: 09/26/22 08:48 Freq: NEEDED Status: Active Protocol: Document 09/26/22 12:18 ES (Rec: 09/26/22 12:44 ES [id number]) Orientation Orientation/Cognition Level of Alertness Alert Orientation Name,Age,Birthday,Month,Date, Year,Day of Week,Place, Situation Language Function Ability No Deficits Noted Safety Awareness Understands Safety Issues Memory Description No Deficits Noted Gross Range of Motion Upper Extremity ROM Assessment Within Functional Limits Lower Extremity ROM Assessment Right Impaired Impairments 2/2 hip precautions, pain Strength Upper Extremity Strength Assessment Within Functional Limits Lower Extremity Strength Assessment Right Impaired Comments Strength Comments R hip strength impaired 2/2 surgery. Coordination Assessment Gross Coordination Gross Coordination WNL Sensation Assessment Comments Sensation Comments Patient reported some numbness in the lateral R thigh. M6 PT-IP Treatment Start: 09/26/22 08:48 Freq: NEEDED Status: Active Protocol: Document 09/27/22 10:23 AB (Rec: 09/27/22 12:49 AB [id number]) Physical Therapy Treatment Education Education Provided Precautions,Safety M7 PT-IP Assessment and Plan Start: 09/26/22 08:48 Freq: NEEDED Status: Active Protocol: Document 09/27/22 10:23 AB (Rec: 09/27/22 12:49 AB [id number]) PT Summary Assessment and Plan Potential Rehabilitation Potential Fair Summary Impairments Pain,ROM,Strength,Balance, Coordination,Sensation,Tone, Cognition,Bed Mobility, Transfers,Gait,Activity Tolerance Progress Towards Goals Slow Progress due to Pain,Slow Progress due to Activity Tolerance Assessment Summary Caregiver training conducted and spouse was able to assist pt with mobility. pt requiring mod to max A with stair climbing using L rail ascending + SPC but spouse was able to assist. pt presents with decrease activity tolerance with (+) R knee buckling towards end of tx session. informed pt regarding HHPT recommendation for now and pt is aware of pros/cons of HHPT vs outpt PT at this time. Pt is still considering going outpt PT and stated that she will be stronger when her appointment comes. Pt may go home with spouse when medically stable. Goals Bed Mobility Goal Independent Transfer Goal Independent,Front Wheeled Walker Gait Goal Independent,Front Wheel Walker Gait Distance 200 Other Goals Patient will be able to ascend /descend up to 8 stairs with single rail with LRAD and SBA. Patient will demonstrate good understanding of hip precautions without cues. Patient will be indep with YASMEEN HEP. Days to Meet Goals 3 Frequency of Treatment Frequency Of Treatment Twice a Day Treatment Plan Physical Therapy Treatment Plan Bed Mobility Training,Transfer Training,Gait Training, Therapeutic Exercise,Post Op Education,Discharge Planning, Hot or Cold Pack Precautions Anterior Hip Precautions No Hip Extension,No Hip External Rotation Weight Bearing Status Weight Bearing Status Weight Bear as Tolerated Allowed Weight Bearing Amount (enter % WBAT RLE or #) (%) Recommendations To Nursing Amount of Assist Needed 1 Person Assist Discharge Recommendations PT Discharge Recommendations Home with Assistance,Home Health Transportation Needs at Discharge Private Vehicle
--- NOTE | 2022-09-27 12:53 | CM.DPNOTE ---
Discharge Planning Note: Patient has discharge orders. Has seen PT today and cleared for home with spouse. She declines HH services, stating she has outpatient PT set up in 5 days. Plan: Discharge home to care of spouse. Cheryl Jenkins RN/DCP
--- NOTE | 2022-09-27 14:55 | PC.NURSE ---
Pt alert and oriented, concerned about when she might go home. Worked with PT and did stairs. Shantel activity well. Cleared by PT. attentive at bedside, Got in car safely. Discharge instructions given and understood.
== END 2022-09-27 13:20 | disposition home or self-care (01) ==
LOC: OR 11:45 → AC 14:14
PROVIDERS: Family Provider Specialist; PCP Family Medicine; Referring Provider Orthopaedic Surgery; Visit Provider Orthopaedic Surgery
PROC: (CPT 27130; principal; 2022-09-25 13:45)
DX: M16.11 Unilateral primary osteoarthritis, right hip (principal)
CPT/HCPCS: 27130; 36415; 73502; 85014; 85018; 97116; 97161; 97165; 97530; 97535; C1776; C9290; J0171; J0690; J1100; J2405; J2704